=== PATIENT | female | born 1990 | race Caucasian/White ===

== ENCOUNTER 2018-06-11 14:15 | Emergency (ER) | payer MEDICAID ==
[2018-06-11 14:54] LABS: % BASOPHILS 0.5 % (0.0-2.0); % EOSINOPHILS 1.5 % (0.0-5.0); % LYMPHOCYTES 14.9 % (20.0-50.0); % MONOCYTES 7.8 % (2.0-10.0); % NEUTROPHILS 75.3 % (40.0-80.0); BASOPHILE ABSOLUTE 0.1 Th/cumm (0-0.2); EOSINOPHILE ABSOLUTE 0.2 Th/cmm (0.1-0.4); HEMATOCRIT 45.3 % (41.0-60); HEMOGLOBIN 14.7 gm/dL (12-16); LYMPHOCYTE ABSOLUTE 1.6 Th/cmm (1.5-3.0); MEAN CORPUSCULAR HEMOGLOBIN 29.8 pg (27.0-31.0); MEAN CORPUSCULAR HGB CONC 32.4 pg (28.0-36.0); MEAN PLATELET VOLUME 9.7 fl; MONOCYTE ABSOLUTE 0.8 Th/cmm (0.3-1.0); NEUTROPHILE ABSOLUTE 8.1 Th/cmm (1.8-8.0); PLATELET COUNT 262 Th/cmm (150-400); RED BLOOD COUNT 4.92 Mil/cmm (3.80-5.10); RED CELL DISTRIBUTION WIDTH 12.9 % (11.5-20.0); WHITE BLOOD COUNT 10.8 Th/cmm (4.8-10.8)
[2018-06-11 15:06] LABS: ALB/GLOB RATIO 1.8 (1.0-1.8); ALBUMIN 4.2 gm/dL (3.7-5.3); ALKALINE PHOSPHATASE 63 U/L (34-104); ANION GAP 13.9 (7.0-16.0); BILIRUBIN,TOTAL 0.4 mg/dL (0.3-1.0); BUN - UREA NITROGEN 13 mg/dL (7-25); CALCIUM SERUM 9.3 mg/dL (8.6-10.3); CARBON DIOXIDE 22.2 mEq/L (21.0-31.0); CHLORIDE 105 mEq/L (98-107); CREATININE - SERUM 0.7 mg/dL (0.6-1.2); GFR AFRICAN-AMERICAN > 60.0 ml/min (>90); GFR NON AFRICAN-AMERICAN > 60.0 ml/min; GLUCOSE 103 mg/dL (70-105); MAGNESIUM 2.2 mg/dL (1.9-2.7); PHOSPHOROUS 3.6 mg/dL (2.5-5.0); POTASSIUM SERUM 4.1 mEq/L (3.5-5.1); SALICYLATES (ASPIRIN) < 25.0 mg/L (30.0-100.0); SGOT 16 U/L (13-39); SGPT/ALT 9 U/L (7-52); SODIUM SERUM 137 mEq/L (136-145); TOTAL PROTEIN,SERUM 6.6 gm/dL (6.0-8.3)
[2018-06-11 15:16] LABS: ACETAMINOPHEN < 10.0 ug/mL (10.0-30.0)
[2018-06-11 15:29] LABS: URINE SOURCE CLEAN C
[2018-06-11 15:35] LABS: URINE BILIRUBIN SMALL (NEGATIVE); URINE BLOOD NEGATIVE (NEGATIVE); URINE GLUCOSE (UA) NEGATIVE (NEGATIVE); URINE KETONE TRACE mg/dL (NEGATIVE); URINE LEUKOCYTE ESTERASE NEGATIVE (NEGATIVE); URINE NITRATE NEGATIVE (NEGATIVE); URINE PROTEIN NEGATIVE (NEGATIVE); URINE UROBILINOGEN 0.2 E.U./dL (0.2 - 1.0)
[2018-06-11 15:40] LABS: URINE CLARITY CLEAR (CLEAR); URINE COLOR YELLOW; URINE MICROSCOPIC INDICATED? YES
[2018-06-11 15:41] LABS: URINE BACTERIA FEW /hpf (NONE SEEN); URINE EPITHELIAL CELLS NONE SEEN /lpf (FEW); URINE RBC NONE SEEN /hpf (0-5); URINE WBC 0-2 /hpf (0-5)
[2018-06-11 15:42] LABS: AMPHETAMINE URINE POSITIVE (NEGATIVE)
[2018-06-11 15:43] LABS: BARBITURATES URINE NEGATIVE (NEGATIVE); BENZODIAZEPINES QUAL URINE NEGATIVE (NEGATIVE); CANNABINOID THC NEGATIVE (NEGATIVE); COCAINE METABOLITE QUAL URINE NEGATIVE (NEGATIVE); METHADONE URINE NEGATIVE (NEGATIVE); METHAMPHETAMINES QUAL URINE POSITIVE (NEGATIVE); OPIATES (MORPHINE) QUAL. URINE NEGATIVE (NEGATIVE); PHENCYCLIDINE (PCP) URINE NEGATIVE (NEGATIVE); TRICYCLICS (TCA) QUAL. URINE NEGATIVE (NEGATIVE)
--- NOTE | 2018-06-12 06:14 | ED Physician Chart ---
ED Chief Complaint/HPI - Patient Information Date Seen:: 06/12/18 Time Seen:: 06:10 Chief Complaint:: ams History of Present Illness:: 26 yr old female with ams was wandering in the streets and was recently released from penitentiary pt was bib acls to [facility] as angela lucio refused to verbalize now here saying her first name is van Allergies:: Allergies Allergy/AdvReac Type Severity Reaction Status Date / Time UNOBTN - Unobtainable Allergy Verified 06/11/18 14:22 ED Review of Systems - Review of Systems General/Constitutional: No fever, No chills, No weight loss, No weakness, No diaphoresis, No edema, No loss of appetite Skin: No skin lesions, No rash, No bruising Head: No headache, No light-headedness Eyes: No loss of vision, No pain, No diplopia ENT: No earache, No nasal drainage, No sore throat, No tinnitus Neck: No neck pain, No swelling, No thyromegaly, No stiffness, No mass noted Cardio Vascular: No chest pain, No palpitations, No PND, No orthopnea, No edema Pulmonary: No SOB, No cough, No sputum, No wheezing GI: No nausea, No vomiting, No diarrhea, No pain, No melena, No hematochezia, No constipation, No hematemesis G/U: No dysuria, No frequency, No hematuria Musculoskeletal: No bone or joint pain, No back pain, No muscle pain Endocrine: No polyuria, No polydipsia Psychiatric: No prior psych history, No depression, No anxiety, No suicidal ideation Hematopoietic: No bruising, No lymphadenopathy Allergic/Immuno: No urticaria, No angioedema Neurological: No syncope, No focal symptoms, No weakness, No paresthesia, No headache, No seizure, No dizziness, No confusion, No vertigo ED Past Medical History - Past Medical History Past Medical History: Other (refuses to say) Family Medical History - Family Member Mother History Unknown: Yes ED Physical Exam - Physical Examination General/Constitutional: Awake, Well-developed, well-nourished, Alert, No distress, GCS 15, Non-toxic appearing, Ambulatory Head: Atraumatic Eyes: Lids, conjuctiva normal, PERRL, EOMI Skin: Nl inspection, No rash, No skin lesions, No ecchymosis, Well hydrated, No lymphadenopathy ENMT: External ears, nose nl, Nasal exam nl, Lips, teeth, gums nl Neck: Nontender, Full ROM w/o pain, No JVD, No nuchal rigidity, No bruit, No mass, No stridor Respiratory: Nl effort/Exclusion, Clear to Auscultation, No Wheeze/Rhonchi/Rales Cardio Vascular: RRR, No murmur, gallop, rubs, NL S1 S2 GI: No tenderness/rebounding/guarding, No organomegaly, No hernia, Normal BS's, Nondistended, No mass/bruits, No McBurney tenderness : No CVA tenderness Extremities: No tenderness or effusion, Full ROM, normal strength in all extremities, No edema, Normal digits & nails Neuro/Psych: Alert/oriented, DTR's symmetric, Normal sensory exam, Normal motor strength, Judgement/insight normal, Mood normal, Normal gait, No focal deficits Misc: Normal back, No paraspinal tenderness ED Labs/Radiology/EKG Results - Lab Results Results: Laboratory Tests 06/11/18 06/11/18 06/11/18 14:40 14:40 15:20 WBC 10.8 RBC 4.92 Hgb 14.7 Hct 45.3 MCV 92.0 MCH 29.8 MCHC Differential 32.4 RDW 12.9 Plt Count 262 MPV 9.7 Neutrophils % 75.3 Lymphocytes % 14.9 L Monocytes % 7.8 Eosinophils % 1.5 Basophils % 0.5 Sodium 137 Potassium 4.1 Chloride 105 Carbon Dioxide 22.2 Anion Gap 13.9 BUN 13 Creatinine 0.7 Est GFR ( Amer) > 60.0 Est GFR (Non-Af Amer) > 60.0 BUN/Creatinine Ratio 18.6 Glucose 103 Calcium 9.3 Phosphorus 3.6 Magnesium 2.2 Total Bilirubin 0.4 AST 16 ALT 9 Alkaline Phosphatase 63 Total Protein 6.6 Albumin 4.2 Globulin 2.4 Albumin/Globulin Ratio 1.8 Urine Source CLEAN C Urine Color YELLOW Urine Clarity CLEAR Urine pH 6.0 Ur Specific [place] >= 1.030 Urine Protein NEGATIVE Urine Glucose (UA) NEGATIVE Urine Ketones TRACE Urine Blood NEGATIVE Urine Nitrate NEGATIVE Urine Bilirubin SMALL H Urine Urobilinogen 0.2 Ur Leukocyte Esterase NEGATIVE Urine RBC NONE SEEN Urine WBC 0-2 Ur Epithelial Cells NONE SEEN Urine Bacteria FEW Urine Test Salicylates < 25.0 L Urine Opiates Screen Urine Methadone Screen Acetaminophen < 10.0 L Ur Barbiturates Screen Ur Tricyclics Screen Ur Phencyclidine Scrn Amphetamines Screen U Methamphetamines Scrn U Benzodiazepines Scrn U Cocaine Metab Screen U Cannabinoids Screen 06/11/18 06/11/18 15:20 15:20 WBC RBC Hgb Hct MCV MCH MCHC Differential RDW Plt Count MPV Neutrophils % Lymphocytes % Monocytes % Eosinophils % Basophils % Sodium Potassium Chloride Carbon Dioxide Anion Gap BUN Creatinine Est GFR ( Amer) Est GFR (Non-Af Amer) BUN/Creatinine Ratio Glucose Calcium Phosphorus Magnesium Total Bilirubin AST ALT Alkaline Phosphatase Total Protein Albumin Globulin Albumin/Globulin Ratio Urine Source Urine Color Urine Clarity Urine pH Ur Specific [place] Urine Protein Urine Glucose (UA) Urine Ketones Urine Blood Urine Nitrate Urine Bilirubin Urine Urobilinogen Ur Leukocyte Esterase Urine RBC Urine WBC Ur Epithelial Cells Urine Bacteria Urine Test NEGATIVE Salicylates Urine Opiates Screen NEGATIVE Urine Methadone Screen NEGATIVE Acetaminophen Ur Barbiturates Screen NEGATIVE Ur Tricyclics Screen NEGATIVE Ur Phencyclidine Scrn NEGATIVE Amphetamines Screen POSITIVE H U Methamphetamines Scrn POSITIVE H U Benzodiazepines Scrn NEGATIVE U Cocaine Metab Screen NEGATIVE U Cannabinoids Screen NEGATIVE ED Assessment - Assessment General Assessment: ams meth abuse ED Septic Shock - . Is Septic Shock (SBP<90, OR Lactate>4 mmol\L) present?: No ED Reassessment (Disposition) - Reassessment Reassessment:: meth abuse - Diagnosis Diagnosis:: meth abuse - Patient Disposition Accepting Physician:: pt is on a 5150 hold by kieran khan by [facility] from this hosp Condition at Disposition:: Stable
--- NOTE | 2018-06-13 07:35 | ED Physician Chart ---
ED Chief Complaint/HPI - Patient Information Date Seen:: 06/11/18 Time Seen:: 14:23 Chief Complaint:: bizarre behavior History of Present Illness:: bizarre behavior in a patient who was just released from detention and refused to give any personal information to police officers. This was an ACLS run. Patient in absolutely no cardiorespiratory distress. Allergies:: Allergies Allergy/AdvReac Type Severity Reaction Status Date / Time UNOBTN - Unobtainable Allergy Verified 06/11/18 14:22 Vitals:: Vital Signs - 8 hr 06/13/18 06/13/18 00:03 06:51 Temp 98.9 F 98.9 F HR 64 60 RR 18 18 BP 91/52 105/65 O2 Sat % 97 100 Historian:: EMS Review:: Nurse's Note Reviewed ED Review of Systems - Review of Systems General/Constitutional: No fever, No chills, No weight loss, No weakness, No diaphoresis, No edema, No loss of appetite Skin: No skin lesions, No rash, No bruising Head: No headache, No light-headedness Eyes: No loss of vision, No pain, No diplopia ENT: No earache, No nasal drainage, No sore throat, No tinnitus Neck: No neck pain, No swelling, No thyromegaly, No stiffness, No mass noted Cardio Vascular: No chest pain, No palpitations, No PND, No orthopnea, No edema Pulmonary: No SOB, No cough, No sputum, No wheezing GI: No nausea, No vomiting, No diarrhea, No pain, No melena, No hematochezia, No constipation, No hematemesis G/U: No dysuria, No frequency, No hematuria Musculoskeletal: No bone or joint pain, No back pain, No muscle pain Endocrine: No polyuria, No polydipsia Psychiatric: No prior psych history, No depression, No anxiety, No suicidal ideation, Other (bizarre behavior; appears to be catatonic or high) Hematopoietic: No bruising, No lymphadenopathy Allergic/Immuno: No urticaria, No angioedema Neurological: No syncope, No focal symptoms, No weakness, No paresthesia, No headache, No seizure, No dizziness, No confusion, No vertigo ED Past Medical History - Past Medical History Obtainable: No Past Medical History: Other (unknown) Family Medical History - Family Member Mother History Unknown: Yes ED Physical Exam - Physical Examination General/Constitutional: Awake, Well-developed, well-nourished, Alert, No distress, Non-toxic appearing Other Gen/Cons comments:: wrists are flexed toes are pointed downward like she has been hyperventilating. Head: Atraumatic Eyes: Lids, conjuctiva normal, PERRL, EOMI Skin: Nl inspection, No rash, No skin lesions, No ecchymosis, Well hydrated, No lymphadenopathy ENMT: External ears, nose nl Neck: Nontender, No nuchal rigidity, No stridor Respiratory: Nl effort/Exclusion, Clear to Auscultation, No Wheeze/Rhonchi/Rales Cardio Vascular: RRR, No murmur, gallop, rubs, NL S1 S2 GI: No tenderness/rebounding/guarding, No organomegaly, No hernia, Normal BS's, Nondistended, No mass/bruits, No McBurney tenderness : No CVA tenderness Other Extremities comments:: wrists are flexed toes are pointed downward like she has been hyperventilating. Neuro/Psych: Normal sensory exam, Normal motor strength, No focal deficits Misc: Normal back, No paraspinal tenderness ED Labs/Radiology/EKG Results - Lab Results Results: Laboratory Tests 06/11/18 06/11/18 06/11/18 14:40 14:40 15:20 WBC 10.8 RBC 4.92 Hgb 14.7 Hct 45.3 MCV 92.0 MCH 29.8 MCHC Differential 32.4 RDW 12.9 Plt Count 262 MPV 9.7 Neutrophils % 75.3 Lymphocytes % 14.9 L Monocytes % 7.8 Eosinophils % 1.5 Basophils % 0.5 Sodium 137 Potassium 4.1 Chloride 105 Carbon Dioxide 22.2 Anion Gap 13.9 BUN 13 Creatinine 0.7 Est GFR ( Amer) > 60.0 Est GFR (Non-Af Amer) > 60.0 BUN/Creatinine Ratio 18.6 Glucose 103 Calcium 9.3 Phosphorus 3.6 Magnesium 2.2 Total Bilirubin 0.4 AST 16 ALT 9 Alkaline Phosphatase 63 Total Protein 6.6 Albumin 4.2 Globulin 2.4 Albumin/Globulin Ratio 1.8 Urine Source CLEAN C Urine Color YELLOW Urine Clarity CLEAR Urine pH 6.0 Ur Specific [place] >= 1.030 Urine Protein NEGATIVE Urine Glucose (UA) NEGATIVE Urine Ketones TRACE Urine Blood NEGATIVE Urine Nitrate NEGATIVE Urine Bilirubin SMALL H Urine Urobilinogen 0.2 Ur Leukocyte Esterase NEGATIVE Urine RBC NONE SEEN Urine WBC 0-2 Ur Epithelial Cells NONE SEEN Urine Bacteria FEW Urine Test Salicylates < 25.0 L Urine Opiates Screen Urine Methadone Screen Acetaminophen < 10.0 L Ur Barbiturates Screen Ur Tricyclics Screen Ur Phencyclidine Scrn Amphetamines Screen U Methamphetamines Scrn U Benzodiazepines Scrn U Cocaine Metab Screen U Cannabinoids Screen 06/11/18 06/11/18 15:20 15:20 WBC RBC Hgb Hct MCV MCH MCHC Differential RDW Plt Count MPV Neutrophils % Lymphocytes % Monocytes % Eosinophils % Basophils % Sodium Potassium Chloride Carbon Dioxide Anion Gap BUN Creatinine Est GFR ( Amer) Est GFR (Non-Af Amer) BUN/Creatinine Ratio Glucose Calcium Phosphorus Magnesium Total Bilirubin AST ALT Alkaline Phosphatase Total Protein Albumin Globulin Albumin/Globulin Ratio Urine Source Urine Color Urine Clarity Urine pH Ur Specific [place] Urine Protein Urine Glucose (UA) Urine Ketones Urine Blood Urine Nitrate Urine Bilirubin Urine Urobilinogen Ur Leukocyte Esterase Urine RBC Urine WBC Ur Epithelial Cells Urine Bacteria Urine Test NEGATIVE Salicylates Urine Opiates Screen NEGATIVE Urine Methadone Screen NEGATIVE Acetaminophen Ur Barbiturates Screen NEGATIVE Ur Tricyclics Screen NEGATIVE Ur Phencyclidine Scrn NEGATIVE Amphetamines Screen POSITIVE H U Methamphetamines Scrn POSITIVE H U Benzodiazepines Scrn NEGATIVE U Cocaine Metab Screen NEGATIVE U Cannabinoids Screen NEGATIVE ED Assessment - Assessment General Assessment: intermittently acts like she is catatonic and then she will spew out profanity. refuses to give any personal information. finally, after 4 hours, she gave us her name and no other information. Pérez came by and placed her on a 72 hour hold. [facility] called. SIGN OUT GIVEN TO DR. JUAREZ. ED Septic Shock - . Is Septic Shock (SBP<90, OR Lactate>4 mmol\L) present?: No - <6hrs of presentation: Vital Signs: Vital Signs - 8 hr 06/13/18 06/13/18 00:03 06:51 Temp 98.9 F 98.9 F HR 64 60 RR 18 18 BP 91/52 105/65 O2 Sat % 97 100 ED Reassessment (Disposition) - Reassessment Reassessment Condition:: Unchanged - Diagnosis Diagnosis:: Bizarre behavior Methamphetamine abuse Small amount of bilirubin in urine - Patient Disposition Condition at Disposition:: Stable, Unchanged
--- NOTE | 2018-06-15 00:12 | Consultation ---
DATE OF CONSULTATION: 06/14/2018 HISTORY OF PRESENT ILLNESS: A 26-year-old female, seems to have history of meth use disorder, currently in the hospital. Not oriented to name or place or situation or month or year. Not answering most questions. The only thing that she tells me is "I can take a bus," very internally preoccupied, disheveled, unkempt, unable to participate in any sort of conversation regarding self-care planning. Per ER physician, U-tox positive for methamphetamine. PAST PSYCHIATRIC HISTORY: It is unclear if she has been in a psychiatric hospital before. She is not answering any questions. FAMILY HISTORY: Unclear. SOCIAL HISTORY: Unclear. Likely it seems she is homeless, no address identified. History of methamphetamine use. MENTAL STATUS EXAMINATION: Disheveled, unkempt, appearing somewhat older than her stated age. Mood not answering. Affect flat, internally preoccupied, appearing psychotic. Poor insight, poor judgment. PROVISIONAL DIAGNOSES: Psychosis, unspecified; meth use disorder, unspecified. Under medical, please see full H and P. Rule out schizophrenia. PLAN: 14-day hold. Start antipsychotic medications. JOB# [id number]
--- NOTE | 2018-06-16 11:48 | Consultation ---
DATE OF CONSULTATION: 06/15/2018 HISTORY OF PRESENT ILLNESS: The patient appears catatonic, not saying anything, not answering any questions whatsoever. Sometimes, she eats and drinks, other times not, just staring blankly. PAST PSYCHIATRIC HISTORY: Unclear. MENTAL STATUS EXAMINATION: Appearing catatonic, staring blankly, answering no questions, poor orientation, appearing internally preoccupied. PLAN: We will initiate Ativan t.i.d. IV. The patient remains symptomatic, concerns for grave disability. [facility]# [id number]
--- NOTE | 2018-06-17 17:44 | Progress Notes ---
DATE: 06/16/2018 SUBJECTIVE: The patient is currently in the Emergency Room, still appearing catatonic, says very little, says one word to me. Staff noting at times she curses, she is eating on a positive note, otherwise staring blankly, appearing extremely and heavily internally preoccupied. Per staff, refusing treatments. ASSESSMENT: The patient is catatonic, gravely disabled, internally preoccupied, appearing psychotic. PLAN: We will order Ativan IM t.i.d., Seroquel 100 mg at night. JOB# [id number]
--- NOTE | 2018-06-18 04:11 | Progress Notes ---
DATE: 06/17/2018 SUBJECTIVE: The patient's identity confirmed. The patient remains catatonic, saying actually nothing, staring blankly, does not answer any questions today. The patient on Ativan routine, but blood pressure low, so unfortunately it is being held right now. The patient unable to have any type of conversation about where she will go. She requires prompting to eat, a lot of prompting to shower, apparently she had not showered for weeks on end, long fingernails, staring blankly, appears to be crying. ASSESSMENT: The patient is catatonic, unkempt, very disheveled, gravely disabled clearly. PLAN: We will continue to monitor and I will be attempting to adjust her dosages of medications. JOB# [id number]
== END 2018-06-21 12:52 ==
LOC: EDBD 14:15 → ER 14:15
DX: F15.10 Other stimulant abuse, uncomplicated (principal); R82.2 Biliuria
CPT/HCPCS: 99285; 36415; 80307; 85025; 81001; 80329 ×2; 81025; 83735; 84100; 80053; J2060 ×2; Z7610